=== PATIENT | male | born 1990 | race Caucasian/White ===

== ENCOUNTER 2017-05-14 19:20 | Emergency (ER) | payer SELFPAY ==
[~2017-05-14 19:20] MED LIST: PENICILLIN VK 500 MG TAB PO SCH
[2017-05-14 19:44] VITALS: TEMP 98.6
--- NOTE | 2017-05-14 20:30 | EDPHY ---
H & P Time Seen by Provider: 05/14/17 19:52 HPI/ROS: CHIEF COMPLAINT: Dental pain HISTORY OF PRESENT ILLNESS: 26-year-old male presents to the emergency department complaining of dental pain. The patient has a history of poor dentition has had numerous teeth pulled in the past. The patient states that he has "very brittle teeth "and states that his front teeth cracked a few days ago. His right upper incisor has been very painful over last 2 days. He has not noticed any facial swelling. No dysphagia. No fevers or chills. ROS: Denies facial swelling, gum or tongue swelling. Denies fevers or chills. Past Medical/Surgical History: Poor dentition, hypertension Social History: Single. Moved [place] 1 year ago. Smoking Status: Current every day smoker Physical Exam: On examination the patient has no facial swelling. Afebrile. Nontoxic appearing. He does have a stutter noted. Numerous teeth have been extracted. No buccal or gingival mucosal swelling. Fractures noted to his upper front teeth , #7 and 8 as well as chipped right front upper incisor. There is no bleeding noted around the tooth. Teeth appear to be intact. No facial swelling noted. Neck is supple without lymphadenopathy. Constitutional: Initial Vital Signs Temperature (C) 37.0 C 05/14/17 19:41 Heart Rate 105 H 05/14/17 19:41 Respiratory Rate 20 05/14/17 19:41 Blood Pressure 158/118 H 05/14/17 19:41 O2 Sat (%) 95 05/14/17 19:41 O2 Delivery Mode Room Air Allergies/Adverse Reactions: No Known Allergies Allergy (Unverified 05/14/17 19:41) Home Medications: Medication Instructions Recorded Penicillin V Potassium 500 mg PO TID #30 tablet 05/14/17 MDM/Departure - [facility] ED Course/Re-evaluation: 26-year-old male presents with dental pain. No evidence of abscess. He will be given penicillin and this will be filled through the map. He was also given referral to dental aid. He was instructed to return if he developed fever, facial swelling, or any other concerns. - Depart Disposition: Home, Routine, Self-Care Clinical Impression: Pain, dental Condition: Good Instructions: Toothache (ED) Additional Instructions: You should see a dentist as soon as possible. Penicillin 3 times daily for 10 days to prevent infection. Adult Pain & Fever Control: We recommend Acetaminophen (Tylenol) and Ibuprofen (Motrin,Advil) for pain and fever control. When fever is high or pain severe, both drugs can be used at the same time, but at different intervals. Please note the time differences. Your dose is: Acetaminophen 1000mg every 4 to 6 hours Ibuprofen 600mg every 8 hours with food Note: do not take Acetaminophen with Hydrocodone (Vicodin, Lortab) or Oycodone (Percocet). These medications also contain Acetaminophen. No more than 3000mg of Acetaminophen should be taken in 24 hours (for an adult). Prescriptions: Penicillin V Potassium 500 mg PO TID #30 tablet Referrals: [facility] [Outside] - As per Instructions Dental [facility] [Outside] - As per Instructions Dental [facility] [Outside] - As per Instructions Dental [facility] [Outside] - As per Instructions [facility] [Outside] - As per Instructions
[2017-05-14] MEDS ORDERED: IBUPROFEN 600 MG TAB PO ONE (20:33)
[2017-05-14] MEDS ORDERED: OXYCODONE/APAP 5/325 TAB PO ONE (21:01)
[2017-05-14] MEDS ORDERED: OXYCODONE/APAP 5/325MG PREPACK#4 BTL TAKEHOME ONE (21:08)
[2017-05-14 21:45] VITALS: BP 155/112; PULSE 74; RESP 18; O2SAT 94
== END 2017-05-14 21:44 | disposition home or self-care (01) ==
DX: K08.89 Other specified disorders of teeth and supporting structures (principal); F17.200 Nicotine dependence, unspecified, uncomplicated; I10 Essential (primary) hypertension